=== PATIENT | female | born 1975 | race Caucasian/White ===

== ENCOUNTER → 2018-08-03 | Outpatient (CLI) | payer OTHER ==
--- NOTE | 2018-08-03 12:27 | RAD ---
MR#: [id number] Date of Study: 08/03/2018 Ordering Physician: ANDREA BRYANT, Referring Physician: ANDREA BRYANT Tech: Shakila Porter RDMS RVT APPROVED REPORT Patient Location : OUT-PATIENT Indications Varicose Veins Montes scale images of the SFJ reveals no significant thrombus on limited imaging. The bilateral Greate r and lesser saphenous veins do not show any evidence of reflux. The left and right greater saphenous veins are compressible and normal in size. Critical Notification Critical Value: No <Conclusion> No reflux in the bilateral greater and lesser saphenous veins. Signed by : Diego Jaramillo, Electronically Approved : 08/03/2018 12:25:46
== END | disposition home or self-care (01) ==
LOC: US 09:46
PROVIDERS: ATTEND Internal Medicine Cardiovascular Disease
DX: I86.8 Varicose veins of other specified sites (principal)
CPT/HCPCS: 93970

== ENCOUNTER 2019-02-28 11:02 | Emergency (ER) | payer OTHER ==
[~2019-02-28] VITALS: Ht 170.2 cm; Wt 74.8 kg
[2019-02-28 11:08] VITALS: BP 132/74
--- NOTE | 2019-02-28 11:37 | PHYS DOC ---
Past History Past Medical History: No Pertinent History, Migraines Past Surgical History: No Surgical History Smoking: Non-smoker Alcohol Use: None Drug Use: None Adult General Chief Complaint Chief Complaint: HEADACHE HPI HPI Patient is a 83-year-old female presents with right-sided headache. Last night had some visual flashing lights that improved with ibuprofen. Headache started in the right side of her head. No significant change with bright lights. No phonophobia. One episode of nausea and vomiting. Patient has a remote history of migraines when she was with her son who is currently 15 years old. This is not as bad as those previous headaches. Patient feels a little lightheaded and unsteady on her feet. The ibuprofen does seem to help but didn't fully eliminate the pain. Patient denies any fevers. Denies any head trauma. Denies this being worse headache of life.[] Review of Systems Review of Systems Constitutional: Denies fever or chills [] Eyes: Denies change in visual acuity, redness, or eye pain [] HENT: Denies nasal congestion or sore throat [] Respiratory: Denies cough or shortness of breath [] Cardiovascular: No chest pain or palpitations[] GI: Denies abdominal pain, nausea, vomiting, bloody stools or diarrhea [] : Denies dysuria or hematuria [] Musculoskeletal: Denies back pain or joint pain [] Integument: Denies rash or skin lesions [] Neurologic: Denies focal weakness or sensory changes [] Endocrine: Denies polyuria or polydipsia [] All other systems were reviewed and found to be within normal limits, except as documented in this note. Allergies Allergies Allergies Coded Allergies Type Severity Reaction Last Updated Verified No Known Drug Allergies 02/28/19 No Physical Exam Physical Exam Constitutional: Well developed, well nourished, mild discomfort, non-toxic appearance. [] HENT: Normocephalic, atraumatic, bilateral external ears normal, oropharynx moist, no oral exudates, nose normal. [] Eyes: PERRLA, EOMI, conjunctiva normal, no discharge. [] Neck: Normal range of motion, no tenderness, supple, no stridor. [] Cardiovascular:Heart rate regular rhythm, no murmur [] Lungs & Thorax: Bilateral breath sounds clear to auscultation [] Abdomen: Bowel sounds normal, soft, no tenderness, no masses, no pulsatile masses. [] Skin: Warm, dry, no erythema, no rash. [] Back: No tenderness, no CVA tenderness. [] Extremities: No tenderness, no cyanosis, no clubbing, ROM intact, no edema. [] Neurologic: Alert and oriented X 3, normal motor function, normal sensory f unction, no focal deficits noted. Normal rapid repetitive and alternating movements. NIH SS of 0 [] Psychologic: Affect normal, judgement normal, mood normal. [] Current Patient Data Vital Signs Vital Signs Date Time Temp Pulse Resp B/P (MAP) Pulse Ox O2 Delivery O2 Flow Rate FiO2 02/28/19 11:08 97.6 66 20 100 Room Air EKG EKG [] Radiology/Procedures Radiology/Procedures PROCEDURE: CT HEAD WO CONTRAST Head CT without contrast History:right-sided headache for one day Technique: Noncontrast CT imaging was acquired of the head. [facility] Compliance Statement: One or more of the following individualized dose reduction techniques were utilized for this examination: 1. Automated exposure control 2. Adjustment of the mA and/or kV according to patient size 3. Use of iterative reconstruction technique Comparison: None Findings: The ventricles, sulci, and cisterns are within normal limits in size and configuration. There is no significant mass-effect, midline shift, or abnormal extra-axial fluid collection. There is no evidence of acute parenchymal or extraaxial hemorrhage. The visualized paranasal sinuses and mastoid air cells are aerated. No significant osseous abnormality is identified. Impression: There is no evidence of an acute intracranial abnormality.[] Course & Med Decision Making Course & Med Decision Making Pertinent Labs and Imaging studies reviewed. (See chart for details) ED course patient arrived, was placed in bed, and tolerated exam well. She received medicine for pain which did significantly improve her discomfort. She was transported to and from radiology without any complications. After the return of the imaging findings, these were discussed with the patient who voiced understanding. All questions were answered. She was discharged in improved condition. Medical decision making: Believe this to be her first migraine in 15 years. Do not see any evidence of meningitis, encephalitis, intracranial mass or bleed, nor an acute stroke syndrome.[] Dragon Disclaimer Dragon Disclaimer This electronic medical record was generated, in whole or in part, using a voice recognition dictation system. Departure Departure: Impression: Primary Impression: Migraine headache with aura Disposition: HOME, SELF-CARE Condition: GOOD Referrals: SHU GUERRERO MD (PCP) Follow-up in 2 days Patient Instructions: Migraine Headache Additional Instructions: Follow-up with your regular doctor in 2 days. At the onset of your next headache like this, try 1/4 teaspoon of joshua dissolved in apple juice or water. Return to the ER if worsening headache, fever of more than 101, or any other concerns. Scripts Metoclopramide Hcl (REGLAN) 10 Mg Tablet 10 MG PO QID for nausea and vomiting, #30 TAB Prov: GIO RUVALCABA DO 02/28/19 Problem Qualifiers Primary Impression: Migraine headache with aura Status migrainosus presence: without status migrainosus Intractability: not intractable Qualified Codes: G43.109 - Migraine with aura, not intractable, without status migrainosus GIO RUVALCABA DO Feb 28, 2019 11:37
[2019-02-28] MEDS ORDERED: diphenhydrAMINE 50 MG/ML VIAL IM ONE (11:45)
[2019-02-28] MEDS ORDERED: METOCLOPRAMIDE HCL 10 MG/2 ML VIAL. IM ONE (11:45)
[2019-02-28] MEDS ORDERED: KETOROLAC 15 MG/ML VIAL. IM ONE (11:45)
[2019-02-28 12:11] LABS: U PREG PATIENT NEGATIVE (NEG)
--- NOTE | 2019-02-28 12:40 | RAD ---
Head CT without contrast History:right-sided headache for one day Technique: Noncontrast CT imaging was acquired of the head. [facility] Compliance Statement: One or more of the following individualized dose reduction techniques were utilized for this examination: 1. Automated exposure control 2. Adjustment of the mA and/or kV according to patient size 3. Use of iterative reconstruction technique Comparison: None Findings: The ventricles, sulci, and cisterns are within normal limits in size and configuration. There is no significant mass-effect, midline shift, or abnormal extra-axial fluid collection. There is no evidence of acute parenchymal or extraaxial hemorrhage. The visualized paranasal sinuses and mastoid air cells are aerated. No significant osseous abnormality is identified. Impression: There is no evidence of an acute intracranial abnormality.
[2019-02-28] MEDS ORDERED: METO10TA81 PO (13:09)
== END 2019-02-28 13:17 | disposition home or self-care (01) ==
LOC: ER 11:02
DX: G43.109 Migraine with aura, not intractable, without status migrainosus (principal); R42 Dizziness and giddiness
CPT/HCPCS: 70450; 81025; 96372; 99285; J1200; J1885; J2765